=== PATIENT | female | born 1995 | race Caucasian/White ===

== ENCOUNTER 2020-05-07 13:02 | Outpatient (CLI) | payer BC ==
[~2020-05-07 13:02] MED LIST: CEPHALEXIN500 MG PO; COLACE 100MG C100 MG PO; IBUPROFEN600 MG PO; NORCO 5-325 TA1 EACH PO
[2020-05-07 14:01] LABS: HEMOGLOBIN 12.9 gm/dl (12.3-15.3); RED BLOOD COUNT 4.75 M/UL (4.00-5.10); WHITE BLOOD COUNT 9.5 K/UL (4.5-11.0)
[2020-05-08] MEDS ORDERED: PRENATAL TABLE1 EAC1 PO (06:14)
[2020-05-08] MEDS ORDERED: FERROUS SULFAT325 MG PO (06:14)
[2020-05-08] MEDS ORDERED: CLARITIN10 M1 PO (06:15)
[2020-05-08] MEDS ORDERED: IBUPROFEN800 MG PO (09:27)
[2020-05-08] MEDS ORDERED: HYDROCODONE-AC1 EAC1 PO (09:27)
[2020-05-08] MEDS ORDERED: DOCUSATE SODIU100 MG PO (09:27)
== END 2020-05-07 14:26 | disposition home or self-care (01) ==
LOC: GENOP 13:02
PROVIDERS: Obstetrics & Gynecology
DX: Z01.812 Encounter for preprocedural laboratory examination (principal); Z20.822 Contact with and (suspected) exposure to COVID-19
CPT/HCPCS: 36415; 81001; 85025; U0002

== ENCOUNTER 2020-05-08 05:26 | Inpatient (IN) | payer BC ==
[~2020-05-08] VITALS: Ht 154.9 cm; Wt 85.3 kg
[2020-05-08] MEDS ORDERED: FERROUS SULFAT325 MG PO (06:14)
[2020-05-08] MEDS ORDERED: PRENATAL TABLE1 EAC1 PO (06:14)
[2020-05-08] MEDS ORDERED: CLARITIN10 M1 PO (06:15)
[2020-05-08] MEDS ORDERED: IBUPROFEN800 MG PO (09:27)
[2020-05-08] MEDS ORDERED: HYDROCODONE-AC1 EAC1 PO (09:27)
[2020-05-08] MEDS ORDERED: DOCUSATE SODIU100 MG PO (09:27)
[2020-05-09 02:08] LABS: HEMOGLOBIN 10.1 gm/dl (12.3-15.3)
== END 2020-05-09 14:39 | disposition home or self-care (01) | DRG 788 ==
LOC: OB 05:26
PROVIDERS: ADMIT Obstetrics & Gynecology
PROC: 10D00Z1 Extraction of Products of Conception, Low, Open Approach (ICD-10-PCS; principal; 2020-05-08 07:30)
PROC: 4A1HXCZ Monitoring of Products of Conception, Cardiac Rate, External Approach (ICD-10-PCS; principal; 2020-05-08 07:30)
DX: O34.211 Maternal care for low transverse scar from previous cesarean delivery (principal); Z3A.39 39 weeks gestation of pregnancy; Z37.0 Single live birth; O24.420 Gestational diabetes mellitus in childbirth, diet controlled; Z20.822 Contact with and (suspected) exposure to COVID-19
CPT/HCPCS: 36415; 81001; 82800; 82962; 85014; 85018; 85025; 90471; C9113; J0690; J1100; J1885; J2274; J2405; J2590; J3010; J7030; J7120; U0002

== ENCOUNTER → 2021-07-03 | Outpatient (CLI) | payer BC ==
[~2021-07-03] MED LIST changes: +CLARITIN10 M1 PO; +DOCUSATE SODIU100 MG PO; +FERROUS SULFAT325 MG PO; +HYDROCODONE-AC1 EAC1 PO; +IBUPROFEN800 MG PO; +PRENATAL TABLE1 EAC1 PO
== END ==
LOC: KOH-I 16:22
DX: R06.02 Shortness of breath (principal)
CPT/HCPCS: 71046

== ENCOUNTER → 2021-07-16 | Outpatient (CLI) | payer BC | LOC: HEART 5 13:34 | DX: R06.02 Shortness of breath (principal) | CPT/HCPCS: 94010 ==